=== PATIENT | female | born 1955 | race Caucasian/White ===

== ENCOUNTER 2016-12-13 09:00 | Outpatient (RCR) | payer BC | END 2016-12-27 16:17 | disposition home or self-care (01) | LOC: PT 09:00 | PROVIDERS: ATTEND Orthopaedic Surgery | DX: Z47.1 Aftercare following joint replacement surgery (principal); Z96.651 Presence of right artificial knee joint ==

== ENCOUNTER 2017-01-30 09:45 | Outpatient (RCR) | payer BC ==
--- NOTE | 2017-01-21 08:09 | PT/OT/ST INITIAL EVALUATION ---
Department of Health and Human Services Form Approved [facility] [employer] OMB No. [id number] PLAN OF CARE/ASSESSMENT FOR OUTPATIENT REHABILITATION (Complete for Initial Claims Only) 1. PATIENT'S NAME Rina Millan 2. ACC # [id number] 3. HICN NA 4. PROVIDER NO. [id number] 5. TYPE: PT 6. PRIOR HOSPITALIZATION None 7. PRIMARY DX Status post right TKA 8. SECONDARY DX Na 9. ONSET DATE October 14, 2016 10. REFERRAL DATE NA 11. SOC. DATE 01/13/2017 12. TIME OF EVAL 13:[address] Priest 13. CHARGES/UNITS 14. G CODES 15. PRIOR LEVEL OF FUNCTION; PERTINENT HISTORY (Prior therapy results, reason for referral.) S: Prior to therapy, the patient consented to today's evaluation and treatment. The patient is a 61-year-old female referred to therapy by Dr. Priest to address status post right total knee replacement. Personal health rating: The patient does rate her overall and general health as good. Primary Complaint: The patient has previously attended therapy with good results, however, the patient was then on a trip with significant increased walking and feels that she re-injured the leg and is weaker than she was prior to leaving on her prolonged trip. The patient does state that she is beginning to experience pain in her left knee as well secondary to compensating for the right knee. The patient does state that since her trip she feels increased tightness in her right knee and increased weakness in her quad. The patient has additionally noticed tightness and swelling since being home from her trip too. The patient did get home from her trip on December 26. The patient does state ice is no significant help for her. Prior level of function: Includes the patient being able to perform all activities required of her. Currently the patient is unable to ambulate up and down stairs, leading with the right lower extremity. She is additionally unable to ambulate up and down ramps as this significantly increases her right knee and makes it feel unstable. Therapy History: Includes PT in the past with good results. Obstacles to delivery of care were not observed. Pain rating: Maximal pain level is 8/10 with typical pain level of 5 to 6/10, which is constant. The patient describes the pain as a stiffness sensation. Aggravating factors: Include walking. Relieving factors: Include ice. Diagnostic testing: Include x-ray, which shows a stable knee replacement. Past medical history: Includes hypertension and osteoarthritis. Current medications: Include [id number] to manage pain. Patient's Goal: The patient's goal for physical therapy is to get back to normal activities. 16. INITIAL ASSESSMENT/SAFETY PRECAUTIONS/MEDICAL COMPLICATIONS (Level of function at start of care. Be specific, use objective measures, list problems.) O: APPEARANCE AND OBSERVATION: The patient presents as a middle aged female in apparently healthy condition. She does ambulate with an antalgic gait pattern with decreased knee flexion throughout the gait cycle and no knee flexion when she is weightbearing on the right lower extremity. The patient ambulates with a locked right knee due to decreased quad control. PALPATION: With palpation the patient does have increased pain to palpation at the distal quadriceps muscle and tightness located in his area as well. SPECIAL TESTS: Include the patient positive for extension lag. Circumferential measures were taken 10 cm superior to the joint line, at the knee joint line and 10 cm inferior to the joint line. These measurements on the right are 40.4, 39.1, and 35.2 cm respectively. These measurements on the left are 41.7, 35.6, and 33.4 cm respectively. RANGE OF MOTION/FLEXIBILITY: Hip extension on the right is 23 degrees, on the left 24 degrees. Quadriceps flexibility is 119 degrees on the right and 140 degrees on the left. Active range of motion throughout the right knee is from 0 degrees to 125 degrees of flexion. Throughout the left knee is 3 degrees of hyperextension to 154 degrees of flexion. STRENGTH: Throughout the left lower extremity is grossly 4+/5 throughout. Throughout the right lower extremity grossly 4/5 with the exception of hip flexion, which is 4-/5 and quadriceps, which is 3/5. TODAY'S TREATMENT: Following the initial evaluation therapeutic exercise was performed and issued as a home exercise program with emphasis on flexibility and quadriceps strengthening. The vasopneumatic device with cold and compression was then performed throughout the right knee due to swelling. 17. INITIAL POC: (Specify procedures, modalities, short and penitentiary goals) A: The patient presents at physical therapy with the diagnosis of status post right TKA with resultant decreased active range of motion, decreased strength, decreased gait, decreased center control and strength of the right quadriceps muscle and increased swelling. PROGNOSIS: This patient does have a good prognosis with regular therapy attendance and compliance with home exercise program. This patient is expected to benefit from physical therapy services in order to have decreased swelling, increased strength to return to full prior activities. OUTCOME ASSESSMENT: Lower Extremity Functional Index which scored 32/80. INFORMED CONSENT: The diagnosis, prognosis, treatment plan, risks and expected outcomes were discussed with the patient and the patient did agree to today's established plan of care. SHORT TERM GOALS: 1. The patient to be independent and compliant with home exercise program in 1 week. 2. The patient with right quadriceps flexibility at least 130 degrees in 3 weeks to allow stair ambulation without restriction. 3. The patient with right quadriceps strength at least 4+/5 throughout in 6 weeks to allow working in her garden. 4. The patient with a Lower Extremity Functional Index score at least 50/80 in 8 weeks to return to unrestricted activity in 8 weeks. P: Plan to treat the patient 2 times per week for 8 weeks in order to address status post right total knee replacement. Therapeutic treatments to include modalities to decrease pain, inflammation and spasming. Manual therapy techniques as indicated. Therapeutic exercise targeting active range of motion, knee stabilization activities, gait training, balance proprioceptive training and patient education in home exercise program to be advanced as warranted. 18. FREQUENCY 2 times per week 19. DURATION 8 weeks 20. FUNCTIONAL LEVEL (End of claim period) 21. PHYSICIAN SIGNATURE ? ON FILE OR ENTER HERE: 22. DATE: I certify the need for these services furnished under this plan of care and if for partial hospitalization. 23. CERTIFICATION FROM THROUGH FORM [id number]
[~2017-01-30 09:45] MED LIST: ASP81CT PO; CHOL500014 PO; EST.625T PO; LOSA1TAB69 PO; LOVA20TA2 PO; MELO-249 PO; OMEG-103 PO; OXYB5TAB PO; TRM50T PO
== END 2017-02-17 13:14 | disposition home or self-care (01) ==
LOC: PT 09:45
PROVIDERS: ATTEND Orthopaedic Surgery
DX: Z96.651 Presence of right artificial knee joint (principal)